=== PATIENT | female | born 1990 | race Caucasian/White ===

== ENCOUNTER 2017-01-26 12:11 | Observation (INO) | payer OTHER ==
[~2017-01-26] VITALS: Ht 154.9 cm; Wt 62.6 kg
[2017-01-26 12:38] VITALS: BP 117/81
== END 2017-01-26 14:30 | disposition home or self-care (01) ==
LOC: 4S 12:11
PROVIDERS: ADMIT Obstetrics & Gynecology; ATTEND Obstetrics & Gynecology
DX: O26.893 Other specified pregnancy related conditions, third trimester (principal); R10.30 Lower abdominal pain, unspecified; Z3A.38 38 weeks gestation of pregnancy
CPT/HCPCS: 59025; G0378

== ENCOUNTER 2017-01-30 20:10 | Observation (INO) | payer OTHER ==
[~2017-01-30] VITALS: Ht 162.6 cm; Wt 62.7 kg
[2017-01-30 21:23] VITALS: BP 131/80
[2017-01-30] MEDS ORDERED: FERR-82 PO (21:27)
== END 2017-01-30 22:17 | disposition home or self-care (01) ==
LOC: 4S 20:10
PROVIDERS: ADMIT Obstetrics & Gynecology; ATTEND Obstetrics & Gynecology
DX: O62.9 Abnormality of forces of labor, unspecified (principal); Z3A.39 39 weeks gestation of pregnancy
CPT/HCPCS: 59025; G0378

== ENCOUNTER 2017-01-31 09:15 | Inpatient (IN) | payer OTHER ==
[~2017-01-31] VITALS: Ht 154.9 cm; Wt 62.0 kg
[~2017-01-31 09:15] MED LIST: FERR-82 PO
[2017-01-31] MEDS ORDERED: RINGERS SOLUTION,LACTATED 1,000 ML IV PRN (09:34)
[2017-01-31] MEDS ORDERED: OXYTOCIN 30 UNITS/LACT RINGERS 500 ML IV ONE (09:34)
[2017-01-31] MEDS ORDERED: METOCLOPRAMIDE HCL 5 MG/ML 2 ML VIAL IVP PRN (09:45)
[2017-01-31] MEDS ORDERED: OXYGEN THERAPY IH SCH (09:45)
[2017-01-31] MEDS ORDERED: CITRIC ACID/SODIUM CITRATE 30 ML SOLUTION UDCUP PO PRN (09:45)
[2017-01-31] MEDS: RINGERS SOLUTION,LACTATED 1,000 ML IV SCH ×3 (09:57→19:18)
[2017-01-31 09:58] VITALS: BP 126/82
[2017-01-31 10:20] LABS: BASOPHILS # (AUTO) 0.11 K/uL (0.00-0.20); BASOPHILS % (AUTO) 0.9 % (0.0-2.0); EOSINOPHILS # (AUTO) 0.02 K/uL (0.00-0.70); EOSINOPHILS % (AUTO) 0.19 % (1.0-6.0); HEMATOCRIT 37.1 % (36-46); HEMOGLOBIN 12.5 g/dL (12.0-16.0); LYMPHOCYTES # (AUTO) 1.7 K/uL (1.0-4.8); LYMPHOCYTES % (AUTO) 13.4 % (22.0-44.0); MEAN CORPUSCULAR HGB CONC 33.6 G/dL (31.0-37.0); MEAN CORPUSCULAR VOLUME 89 fL (80-100); MONOCYTES # (AUTO) 0.6 K/uL (0.1-1.0); MONOCYTES % (AUTO) 5.1 % (2.0-9.0); NEUTROPHILS # (AUTO) 10.1 K/uL (1.8-7.7); NEUTROPHILS % (AUTO) 80.5 % (40.0-70.0); PLATELET COUNT (AUTO) 168 K/uL (150-450); RED BLOOD CELL COUNT(AUTO) 4.16 MIL/uL (4.00-5.20); WHITE BLOOD COUNT (AUTO) 12.5 K/uL (4.5-11.0)
[2017-01-31] MEDS ORDERED: INFLUENZA VIRUS VACCINE QVS 2017-18 (3YR+)/PF 60 MCG/0.5 ML SYRINGE IM ONE (10:30)
[2017-01-31] MEDS: FentaNYL CITRATE-PF 100 MCG/2 ML VIAL IVP PRN ×2 (10:51→10:58)
[2017-01-31] MEDS ORDERED: FentaNYL/BUPIV 0.125%/NS/PF 200 ML ED ONE (11:06)
[2017-01-31] MEDS ORDERED: BUPIVACAINE HCL/PF 0.25% 30 ML VIAL ONE (11:07)
[2017-01-31] MEDS ORDERED: FentaNYL/BUPIV 0.125%/NS/PF 200 ML ED PRN (11:42)
[2017-01-31] MEDS ORDERED: DiphenhydrAMINE HCL 50 MG/ML VIAL IVP PRN (11:45)
[2017-01-31] MEDS ORDERED: ONDANSETRON HCL 4 MG/2 ML VIAL IVP PRN (11:45)
[2017-01-31] MEDS ORDERED: OXYTOCIN 30 UNITS/LACT RINGERS 500 ML IV PRN (14:09)
[2017-01-31] MEDS: AMPICILLIN SODIUM 2 GM/NS 100 ML IV SCH ×2 (16:33→22:33)
[2017-01-31] MEDS ORDERED: GENTAMICIN SULFATE 180 MG in DEXTROSE 5%-WATER 50 ML IV ONE (17:00)
[2017-01-31] MEDS ORDERED: ACETAMINOPHEN 1000 MG/ISO-OSM 100 ML IV ONE (17:45)
[2017-01-31] MEDS ORDERED: MORPHINE SULFATE/PF 0.5 MG/ML 10 ML AMP ONE (23:55)
[2017-02-01] MEDS ORDERED: MORPHINE SULFATE 2 MG/ML SYRINGE IVP PRN (01:00)
[2017-02-01] MEDS ORDERED: ONDANSETRON HCL 4 MG/2 ML VIAL IVP PRN ×2 (01:00)
[2017-02-01] MEDS ORDERED: OXYGEN THERAPY IH SCH ×2 (01:00)
[2017-02-01] MEDS ORDERED: MORPHINE SULFATE 4 MG/ML SYRINGE IVP PRN (01:00)
[2017-02-01] MEDS ORDERED: FentaNYL CITRATE-PF 100 MCG/2 ML VIAL IVP PRN ×2 (01:00)
[2017-02-01] MEDS ORDERED: DiphenhydrAMINE HCL 50 MG/ML VIAL IVP PRN ×2 (01:00)
[2017-02-01] MEDS ORDERED: ACETAMINOPHEN 1000 MG/ISO-OSM 100 ML IV ONE (01:19)
[2017-02-01] MEDS: ACETAMINOPHEN 1000 MG/ISO-OSM 100 ML IV SCH ×3 (02:01→17:34)
[2017-02-01] MEDS ORDERED: LANOLIN 7 GM OINTMENT TP PRN (02:15)
[2017-02-01] MEDS ORDERED: MEASLES/MUMPS/RUBELLA VACCINE, LIVE 0.5 ML/VIAL SQ ONE (02:15)
[2017-02-01] MEDS: NALBUPHINE HCL 10 MG/ML VIAL IVP SCH ×3 (05:31→17:34)
[2017-02-01] MEDS ORDERED: CLINDAMYCIN 600 MG/D5% WATER 50 ML IV ONE (07:50)
[2017-02-01] MEDS: RINGERS SOLUTION,LACTATED 1,000 ML IV SCH ×2 (08:38→17:46)
[2017-02-01] MEDS: CeFAZolin 2 GM/DEXTROSE 50 ML IV SCH ×2 (08:39→16:00)
[2017-02-01] MEDS ORDERED: METHYLERGONOVINE MALEATE 0.2 MG/ML VIAL ONE (19:30)
[2017-02-01] MEDS: MAGNESIUM HYDROXIDE SUSPENSION 30 ML UDCUP PO PRN (21:16)
[2017-02-01] MEDS: IBUPROFEN 800 MG TABLET PO SCH (21:16)
[2017-02-02] MEDS ORDERED: IBUPROFEN 800 MG TABLET PO PRN (02:15)
[2017-02-02] MEDS ORDERED: ACETAMINOPHEN/CODEINE 300-30 MG TABLET PO PRN ×2 (02:15)
[2017-02-02] MEDS: IBUPROFEN 800 MG TABLET PO SCH ×4 (03:06→20:50)
[2017-02-02] MEDS ORDERED: DEXAMETHASONE SOD PHOS 4 MG/ML VIAL IVP ONE (05:13)
[2017-02-02] MEDS ORDERED: ONDANSETRON HCL 4 MG/2 ML VIAL IVP ONE (05:13)
[2017-02-02] MEDS ORDERED: OXYTOCIN 10 UNITS/ML VIAL IM ONE (05:13)
[2017-02-02 06:18] LABS: HEMATOCRIT 22.8 % (36-46); HEMOGLOBIN 7.6 g/dL (12.0-16.0); MEAN CORPUSCULAR HEMOGLOBIN 30.3 pg (26.0-34.0); MEAN CORPUSCULAR HGB CONC 33.3 G/dL (31.0-37.0); MEAN CORPUSCULAR VOLUME 91 fL (80-100); RED CELL DISTRIBUTION WIDTH 13.8 % (11.5-14.5); WHITE BLOOD COUNT (AUTO) 17.5 K/uL (4.5-11.0)
[2017-02-02 08:40] LABS: BAND NEUTROPHILS % (MANUAL) 16 % (1-5); EOSINOPHILS % (MANUAL) 1 % (1-6); LYMPHOCYTES % (MANUAL) 10 % (22-44); RBC MORPHOLOGY COMMENT NORMAL RBC MORPH; TOTAL CELLS COUNTED 100
[2017-02-02] MEDS: MAGNESIUM HYDROXIDE SUSPENSION 30 ML UDCUP PO PRN ×2 (09:14→22:08)
[2017-02-02] MEDS: SOD FERRIC GLUC COMPLX/SUCROSE 125 MG in SODIUM CHLORIDE 0.9% 100 ML IV SCH (10:44)
[2017-02-03] MEDS: IBUPROFEN 800 MG TABLET PO SCH ×2 (02:57→08:02)
[2017-02-03] MEDS: MAGNESIUM HYDROXIDE SUSPENSION 30 ML UDCUP PO PRN (08:02)
[2017-02-03] MEDS: SOD FERRIC GLUC COMPLX/SUCROSE 125 MG in SODIUM CHLORIDE 0.9% 100 ML IV SCH (10:02)
[2017-02-03] MEDS ORDERED: IBUP-2071 PO (11:27)
[2017-02-03] MEDS ORDERED: DSS100 PO (12:08)
[2017-02-03] MEDS ORDERED: FERR-89 PO (12:16)
[2017-02-03] MEDS ORDERED: HYDR-309 PO (12:18)
[2017-02-03] MEDS ORDERED: BISACODYL 10 MG RECTAL RECTAL SUPPOSITORY PR ONE (12:45)
== END 2017-02-03 13:10 | disposition home or self-care (01) | DRG 765 ==
LOC: 4S 09:15 → OBSVTOIN 09:15 → 4S 02-01 03:11
PROVIDERS: ADMIT Obstetrics & Gynecology; ATTEND Obstetrics & Gynecology
PROC: 10D00Z1 Extraction of Products of Conception, Low, Open Approach (ICD-10-PCS; principal; 2017-02-01)
DX: O75.3 Other infection during labor (principal); A41.9 Sepsis, unspecified organism; O41.1230 Chorioamnionitis, third trimester, not applicable or unspecified; Z37.0 Single live birth; Z3A.39 39 weeks gestation of pregnancy; O62.2 Other uterine inertia
CPT/HCPCS: 90707; J0131; J0290; J0690; J1100; J1580; J2210; J2274; J2300; J2405; J2590; J2765; J2916; J3010; J3490; J7050; J7060; J7120